=== PATIENT | male | born 1960 | race Caucasian/White ===

== ENCOUNTER 2021-07-15 11:20 | Emergency (ER) | payer BC ==
[~2021-07-15] VITALS: Ht 190.5 cm; Wt 78.5 kg
--- NOTE | ~2021-07-15 | EKG ---
[facility] [address] [facility] [place], [place] [address] Draft EK completed, results pending confirmation PATIENT NAME: JUANY HIGH Electrocardiogram DATE OF : 60 PHYSICIAN: PRELIMINARY REPORT #: [id number] REPORT IS CONFIDENTIAL AND NOT TO BE RELEASED WITHOUT AUTHORIZATION
[~2021-07-15 11:20] MED LIST: DAILY VITAMIN1 EAC2 PO; GLUCOSAMINE CH1 EAC7 PO; HYDROCODON-ACE1 EA11 PO; IBUPROFEN400 MG PO; VITAMIN D35000 UNI1 PO
== END 2021-07-15 12:46 | disposition home or self-care (01) ==
LOC: ED 11:20
DX: R07.89 Other chest pain (principal)
CPT/HCPCS: 36415; 71045; 80053; 84484; 85025; 93005; 93010; 99285-25